=== PATIENT | female | born 1950 | race Caucasian/White ===

== ENCOUNTER 2023-03-04 16:05 | Emergency (ER) | payer MEDICARE, OTHER | END 2023-03-04 18:04 | disposition home or self-care (01) | LOC: JP.ED 16:05 | DX: S00.03XA Contusion of scalp, initial encounter (principal); S00.432A Contusion of left ear, initial encounter; S40.012A Contusion of left shoulder, initial encounter; I10 Essential (primary) hypertension; W18.12XA Fall from or off toilet with subsequent striking against object, initial encounter; Z79.82 Long term (current) use of aspirin | CPT/HCPCS: 70450; 73030-26-LT; 73030-LT; 99284 ==